=== PATIENT | male | born 1950 | race Asian ===

== ENCOUNTER 2021-08-12 01:11 | Emergency (ER) | payer BC, OTHER ==
[~2021-08-12] VITALS: Ht 175.3 cm; Wt 83.9 kg
[2021-08-12 01:51] LABS: PLATELET COUNT 277 K/uL (142-355)
[2021-08-12 01:57] LABS: POTASSIUM 3.4 mmol/L (3.6-5.2); SODIUM 137 mmol/L (136-145)
[2021-08-12 02:53] VITALS: BP 157/84; TEMP 97.8
== END 2021-08-12 02:53 | disposition home or self-care (01) ==
LOC: ED 01:11
PROVIDERS: Emergency Medicine
DX: E16.1 Other hypoglycemia (principal); F10.129 Alcohol abuse with intoxication, unspecified; Y90.4 Blood alcohol level of 80-99 mg/100 ml
CPT/HCPCS: 80053; 80307; 80320; 84484; 85027; 93005; 96360; 99284